=== PATIENT | female | born 1965 | race Two or more races ===

== ENCOUNTER 2018-08-07 08:09 | Outpatient (CLI) | payer OTHER | END 2018-08-07 08:19 | disposition home or self-care (01) | LOC: MAMO-SONO 08:09 | DX: Z12.31 Encounter for screening mammogram for malignant neoplasm of breast (principal); R10.9 Unspecified abdominal pain ==

== ENCOUNTER 2018-08-13 08:11 | Outpatient (CLI) | payer OTHER | END 2018-08-13 12:04 | disposition home or self-care (01) | LOC: LAB 08:11 | DX: R10.9 Unspecified abdominal pain (principal); Z51.81 Encounter for therapeutic drug level monitoring ==

== ENCOUNTER 2018-08-13 09:58 | Outpatient (CLI) | payer OTHER | END 2018-08-13 15:05 | disposition home or self-care (01) | LOC: TOM 09:58 | DX: R10.9 Unspecified abdominal pain (principal) ==

== ENCOUNTER 2019-04-06 15:57 | Outpatient (CLI) | payer OTHER | END 2019-04-06 17:03 | disposition home or self-care (01) | LOC: RAD 15:57 | DX: M25.561 Pain in right knee (principal); M25.562 Pain in left knee ==

== ENCOUNTER 2020-05-23 11:09 | Outpatient (CLI) | payer OTHER | END 2020-05-23 11:19 | disposition home or self-care (01) | LOC: NUCLEAR 11:09 | PROVIDERS: ATTEND General Practice | DX: M81.0 Age-related osteoporosis without current pathological fracture (principal); R92.0 Mammographic microcalcification found on diagnostic imaging of breast; Z12.31 Encounter for screening mammogram for malignant neoplasm of breast ==

== ENCOUNTER 2020-05-23 11:38 | Outpatient (CLI) | payer OTHER | END 2020-05-23 11:43 | disposition home or self-care (01) | LOC: MAMO-SONO 11:38 | PROVIDERS: ATTEND General Practice | DX: R92.0 Mammographic microcalcification found on diagnostic imaging of breast (principal); Z12.31 Encounter for screening mammogram for malignant neoplasm of breast; M81.0 Age-related osteoporosis without current pathological fracture ==

== ENCOUNTER 2020-07-07 14:27 | Outpatient (CLI) | payer OTHER | END 2020-07-07 14:50 | disposition home or self-care (01) | LOC: RAD 14:27 | PROVIDERS: ATTEND General Practice | DX: M25.572 Pain in left ankle and joints of left foot (principal) ==

== ENCOUNTER 2021-07-11 09:45 | Outpatient (CLI) | payer OTHER | END 2021-07-11 09:50 | disposition home or self-care (01) | LOC: MAMO-SONO 09:45 | PROVIDERS: ATTEND General Practice | DX: R92.0 Mammographic microcalcification found on diagnostic imaging of breast (principal); Z12.31 Encounter for screening mammogram for malignant neoplasm of breast ==

== ENCOUNTER → 2022-06-15 | Outpatient (CLI) | payer OTHER | END | disposition home or self-care (01) | LOC: NUCLEAR 13:15 | PROVIDERS: ATTEND General Practice | DX: M81.0 Age-related osteoporosis without current pathological fracture (principal) ==